=== PATIENT | female | born 1975 | race Two or more races ===

== ENCOUNTER 2016-07-15 18:25 | Emergency (ER) | payer MEDICAID ==
[2016-07-15 21:25] LABS: URINE BILIRUBIN NEGATIVE (NEG); URINE BLOOD MODERATE (NEG); URINE GLUCOSE (UA) NEGATIVE (NEG); URINE KETONE NEGATIVE (NEG); URINE LEUKOCYTE ESTERASE POSITIVE (NEG); URINE NITRITE NEGATIVE (NEG); URINE PROTEIN NEGATIVE (NEG); URINE SPECIFIC GRAVITY 1.025 (1.003-1.030)
[2016-07-15 21:32] LABS: URINE APPEARANCE HAZY; URINE COLOR YELLOW
[2016-07-15 21:34] LABS: URINE BACTERIA 1+; URINE MUCUS 1+; URINE RBC 0-3 /[HPF] (0-5)
[2016-07-15 22:18] LABS: BASO % 0.3 % (0-2); EOS % 1.9 % (0-7); EOSINOPHIL ABSOLUTE COUNT 0.2 tho/cmm (0.0-0.7); HCT-HEMATOCRIT 40.6 % (34.0-49.0); HGB-HEMOGLOBIN 13.2 gm/dl (12.0-15.5); IMMATURE GRANULOCYTES ABSOLUTE 0.01 tho/cmm (0-0.03); IMMATURE GRANULOCYTES PERCENT 0.1 % (0-0.3); LYMPH % 37.9 % (20-45); LYMPH ABSOLUTE COUNT 3.8 tho/cmm (0.8-4.5); MCH (MEAN CORPUSCULAR HGB) 26.5 pg (28.0-32.0); MCHC MEAN CORPUSCULAR HGB CONC 32.5 % (32.0-36.0); MCV (MEAN CELL VOLUME) 81.4 fl (82.0-96.0); MEAN PLATELET VOLUME 9.8 cmc (9.4-12.4); MONO % 5.7 % (0-12); MONOCYTE ABSOLUTE COUNT 0.6 tho/cmm (0.0-1.2); NEUTROPHIL ABSOLUTE COUNT 5.4 tho/cmm (1.6-8.0); NEUTROPHIL-AUTOMATED 5.4 tho/cmm (1.6-8.0); NEUTROPHILS % 54.1 % (40-80); PLATELET COUNT 265 tho/cmm (150-450); RED BLOOD COUNT 4.99 mil/cmm (4.00-5.20); RED CELL DISTRIBUTION WIDTH 13.5 % (12.4-16.4)
[2016-07-15 22:29] LABS: ALB/GLOB RATIO 0.8 (0.8-2.0); ALBUMIN 3.6 g/dl (3.5-5.0); ALKALINE PHOSPHATASE 128 U/L (33-138); ALT/SGPT 23 U/L (12-78); ANION GAP 13 mmol/L (0-20); AST/SGOT 13 U/L (10-40); BILIRUBIN,TOTAL 0.1 mg/dl (0-1.5); BLOOD UREA NITROGEN 13 mg/dl (6-24); CALCIUM 8.7 mg/dl (8.5-10.5); CARBON DIOXIDE-VENOUS 25 mmol/L (22-32); CHLORIDE 108 mmol/l (96-110); CREATININE 0.73 mg/dl (0.50-1.10); GLUCOSE 133 mg/dL (70-110); LIPASE 118 U/L (73-393); POTASSIUM 3.8 mmol/L (3.7-5.1); SODIUM 142 mmol/L (135-145); eGFR VALUE FOR BLACK >90 mL/Min
[2016-08-05] MEDS ORDERED: VITAMIN D35000 UNI3 PO (14:38)
[2016-08-05] MEDS ORDERED: IBUPROFEN200 M3 PO (14:39)
[2016-08-05] MEDS ORDERED: DULOXETINE HCL20 MG PO (14:39)
[2016-08-05] MEDS ORDERED: DULERA 100 MCG/13 G1 INH (14:40)
== END 2016-07-16 00:18 ==
LOC: EDMED 18:25
PROVIDERS: Emergency Medicine
DX: R10.32 Left lower quadrant pain (principal); G89.29 Other chronic pain; Z90.49 Acquired absence of other specified parts of digestive tract
CPT/HCPCS: J1885; J2405; J7030